=== PATIENT | male | born 1965 | race Two or more races ===

== ENCOUNTER 2017-07-22 14:43 | Emergency (ER) | payer OTHER ==
[~2017-07-22] VITALS: Ht 165.1 cm; Wt 90.7 kg
[2017-07-22] MEDS: ONDANSETRON HCL 4 MG/2 ML VIAL IV ONE (19:37)
[2017-07-22] MEDS: MORPHINE SULF INJ 2 MG/ML SYRINGE 1ML IV ONE (19:37)
[2017-07-22 21:42] VITALS: BP 108/73
== END 2017-07-22 21:55 | disposition home or self-care (01) ==
LOC: ER 14:48
DX: S83.92XA Sprain of unspecified site of left knee, initial encounter (principal); M25.462 Effusion, left knee; I25.2 Old myocardial infarction; F17.210 Nicotine dependence, cigarettes, uncomplicated; Z86.73 Personal history of transient ischemic attack (TIA), and cerebral infarction without residual deficits; X58.XXXA Exposure to other specified factors, initial encounter; Y93.89 Activity, other specified; Y99.8 Other external cause status; Y92.89 Other specified places as the place of occurrence of the external cause
CPT/HCPCS: 73564; 96374; 96375; 99284; J2270; J2405